=== PATIENT | male | born 2000 ===

== ENCOUNTER 2021-09-13 15:22 | Emergency (ER) | payer OTHER ==
[~2021-09-13] VITALS: Ht 167.6 cm; Wt 55.8 kg
[2021-09-13 16:58] VITALS: BP 126/79
[2021-09-13] MEDS ORDERED: NAP500T GT (17:20)
== END 2021-09-13 17:25 | disposition home or self-care (01) ==
LOC: ER 15:22
DX: R07.89 Other chest pain (principal); Z79.899 Other long term (current) drug therapy
CPT/HCPCS: 71046; 93005